=== PATIENT | female | born 1935 | race Caucasian/White ===

== ENCOUNTER 2021-06-08 15:47 | Inpatient (IN) | payer MEDICARE, OTHER ==
[2021-06-08] MEDS ORDERED: Bisacodyl 5 MG TAB PO PRN (16:18)
[2021-06-08] MEDS ORDERED: Ondansetron PF 4 MG/2 ML Vial IVP PRN (16:18)
[2021-06-08] MEDS ORDERED: Senokot S 8.6-50 MG TAB PO PRN (16:18)
[2021-06-08] MEDS ORDERED: Norepinephrine 8 MG/0.9% NS 250 ML IVPB SCH (16:30)
[2021-06-08 16:45] VITALS: BMI 26.9
[2021-06-08] MEDS: Mometasone/Formoterol 200/5 60 PUFF INH SCH (18:40)
[2021-06-09 04:05] LABS: #Basophils 0.1 10x3/uL (0.0-0.2); #Eosinphils 0.1 10x3/uL (0.0-0.5); #Monocytes 0.8 10x3/uL (0.0-1.1); #Neutrophils 5.3 10x3/uL (1.5-8.4); %Basophils 0.7 % (0.0-2.0); %Eosinophils 1.1 % (0.0-6.0); %Lymphocytes 16.2 % (18.0-47.0); %Monocytes 10.8 % (0.0-10.0); %Neutrophils 70.7 % (40.0-75.0); Hemoglobin 12.1 g/dL (12.0-15.5); Mean Corpuscular HGB CONC 33.4 g/dL (32.0-36.0); Mean Corpuscular Hemoglobin 31.3 pg (27.0-33.0); Mean Corpuscular Volume 93.8 fl (81.6-98.3); Mean Platelet Volume 10.8 fl (7.4-10.4); Platelet Count 144 10x3/uL (150-450); RBC Distribution Width 13.4 % (11.5-14.5); Red Blood Cell (RBC) Count 3.86 10x6/uL (3.90-5.03); White Blood Cell (WBC) Count 7.5 10x3/uL (3.5-10.5)
[2021-06-09 04:22] LABS: ALT (SGPT) 9 U/L (8-55); AST (SGOT) 14 U/L (5-34); Alkaline Phosphatase 46 U/L (40-110); Anion Gap 11 mmol/L (10-20); BUN (Urea Nitrogen) 11 mg/dL (9.8-20.1); Bilirubin, Total 0.5 mg/dL (0.2-1.2); Calc. Creatinine Clearance 69 mL/min (70-130); Calcium 8.2 mg/dL (7.8-10.44); Carbon Dioxide 19 mmol/L (23-31); Chloride 116 mmol/L (98-107); Globulin 1.8 g/dL (2.4-3.5); Glucose 110 mg/dL (83-110); Phosphorus 2.7 mg/dL (2.3-4.7); Protein, Total 4.8 g/dL (5.8-8.1); Sodium 142 mmol/L (136-145)
[2021-06-09] MEDS: Mometasone/Formoterol 200/5 60 PUFF INH SCH ×2 (07:48→19:45)
[2021-06-09] MEDS: Aspirin Chewable 81 MG TAB PO SCH (08:45)
[2021-06-09] MEDS: Enoxaparin Sodium 40 MG/0.4 ML SYRINGE SC SCH (08:46)
[2021-06-09] MEDS: cefTRIAXone\\ROCEPHIN 2 GM in Sodium Chloride 0.9% 100 ML IVPB SCH (10:05)
[2021-06-09] MEDS ORDERED: Sodium Chloride 0.9% 500 ML IV SCH (10:45)
[2021-06-09 11:37] LABS: Hemoglobin A1c 5.5 % (4.0-6.0)
[2021-06-09] MEDS: Acetaminophen 325 MG TAB PO PRN (20:26)
[2021-06-10 04:29] LABS: #Basophils 0.1 10x3/uL (0.0-0.2); #Eosinphils 0.2 10x3/uL (0.0-0.5); #Monocytes 0.7 10x3/uL (0.0-1.1); #Neutrophils 3.1 10x3/uL (1.5-8.4); %Basophils 1.1 % (0.0-2.0); %Eosinophils 3.2 % (0.0-6.0); %Monocytes 12.7 % (0.0-10.0); %Neutrophils 59.6 % (40.0-75.0); Mean Corpuscular HGB CONC 32.1 g/dL (32.0-36.0); Mean Corpuscular Hemoglobin 30.5 pg (27.0-33.0); Mean Platelet Volume 11.1 fl (7.4-10.4); Platelet Count 147 10x3/uL (150-450); RBC Distribution Width 13.3 % (11.5-14.5); Red Blood Cell (RBC) Count 3.61 10x6/uL (3.90-5.03); White Blood Cell (WBC) Count 5.3 10x3/uL (3.5-10.5)
[2021-06-10 04:37] LABS: ALT (SGPT) 8 U/L (8-55); AST (SGOT) 13 U/L (5-34); Albumin 2.9 g/dL (3.4-4.8); Alkaline Phosphatase 39 U/L (40-110); Anion Gap 11 mmol/L (10-20); BUN (Urea Nitrogen) 8 mg/dL (9.8-20.1); Bilirubin, Total 0.4 mg/dL (0.2-1.2); Calc. Creatinine Clearance 69 mL/min (70-130); Calcium 8.3 mg/dL (7.8-10.44); Carbon Dioxide 21 mmol/L (23-31); Chloride 115 mmol/L (98-107); Globulin 1.7 g/dL (2.4-3.5); Glucose 94 mg/dL (83-110); Magnesium 1.9 mg/dL (1.6-2.6); Potassium 3.7 mmol/L (3.5-5.1); Protein, Total 4.6 g/dL (5.8-8.1); Sodium 143 mmol/L (136-145)
[2021-06-10] MEDS: Mometasone/Formoterol 200/5 60 PUFF INH SCH ×2 (07:21→20:06)
[2021-06-10] MEDS: Enoxaparin Sodium 40 MG/0.4 ML SYRINGE SC SCH (08:41)
[2021-06-10] MEDS: Aspirin Chewable 81 MG TAB PO SCH (08:41)
[2021-06-10] MEDS: cefTRIAXone\\ROCEPHIN 2 GM in Sodium Chloride 0.9% 100 ML IVPB SCH (09:56)
[2021-06-10] MEDS: Acetaminophen 325 MG TAB PO PRN (21:47)
[2021-06-11 05:08] LABS: #Basophils 0.1 10x3/uL (0.0-0.2); #Eosinphils 0.2 10x3/uL (0.0-0.5); #Monocytes 0.6 10x3/uL (0.0-1.1); #Neutrophils 2.2 10x3/uL (1.5-8.4); %Basophils 1.2 % (0.0-2.0); %Eosinophils 3.6 % (0.0-6.0); %Lymphocytes 28.8 % (18.0-47.0); %Monocytes 14.8 % (0.0-10.0); %Neutrophils 51.1 % (40.0-75.0); Hemoglobin 11.1 g/dL (12.0-15.5); Mean Corpuscular HGB CONC 33.6 g/dL (32.0-36.0); Mean Corpuscular Hemoglobin 31.1 pg (27.0-33.0); Mean Corpuscular Volume 92.4 fl (81.6-98.3); Mean Platelet Volume 10.9 fl (7.4-10.4); Platelet Count 163 10x3/uL (150-450); RBC Distribution Width 13.2 % (11.5-14.5); Red Blood Cell (RBC) Count 3.57 10x6/uL (3.90-5.03); White Blood Cell (WBC) Count 4.2 10x3/uL (3.5-10.5)
[2021-06-11 05:13] LABS: ALT (SGPT) 8 U/L (8-55); AST (SGOT) 14 U/L (5-34); Albumin 2.8 g/dL (3.4-4.8); Alkaline Phosphatase 40 U/L (40-110); Anion Gap 10 mmol/L (10-20); BUN (Urea Nitrogen) 9 mg/dL (9.8-20.1); Bilirubin, Total 0.4 mg/dL (0.2-1.2); Calc. Creatinine Clearance 61 mL/min (70-130); Calcium 8.4 mg/dL (7.8-10.44); Carbon Dioxide 23 mmol/L (23-31); Chloride 112 mmol/L (98-107); Globulin 1.7 g/dL (2.4-3.5); Glucose 94 mg/dL (83-110); Magnesium 1.8 mg/dL (1.6-2.6); Phosphorus 3.7 mg/dL (2.3-4.7); Potassium 3.3 mmol/L (3.5-5.1); Protein, Total 4.5 g/dL (5.8-8.1); Sodium 142 mmol/L (136-145)
[2021-06-11] MEDS: Mometasone/Formoterol 200/5 60 PUFF INH SCH (06:52)
[2021-06-11] MEDS: Enoxaparin Sodium 40 MG/0.4 ML SYRINGE SC SCH (07:54)
[2021-06-11] MEDS: cefTRIAXone\\ROCEPHIN 2 GM in Sodium Chloride 0.9% 100 ML IVPB SCH (07:54)
[2021-06-11] MEDS: Aspirin Chewable 81 MG TAB PO SCH (07:54)
[2021-06-11] MEDS ORDERED: Potassium Chloride 20 MEQ TAB PO SCH (08:00)
[2021-06-11 12:18] VITALS: BP 127/77; TEMP 97
== END 2021-06-11 15:02 | disposition home or self-care (01) | DRG 871 ==
LOC: CSHIMCU 15:47 → CSHTELE 06-10 15:34
PROVIDERS: ADMIT Family Medicine; ATTEND Family Medicine
PROC: 3E033XZ Introduction of Vasopressor into Peripheral Vein, Percutaneous Approach (ICD-10-PCS; principal; 2021-06-08)
DX: A41.9 Sepsis, unspecified organism (principal); R65.21 Severe sepsis with septic shock; N10 Acute pyelonephritis; I10 Essential (primary) hypertension; K21.9 Gastro-esophageal reflux disease without esophagitis; Z20.822 Contact with and (suspected) exposure to COVID-19; Z87.891 Personal history of nicotine dependence; F41.9 Anxiety disorder, unspecified; J44.9 Chronic obstructive pulmonary disease, unspecified; R60.0 Localized edema; T50.995A Adverse effect of other drugs, medicaments and biological substances, initial encounter; Y92.230 Patient room in hospital as the place of occurrence of the external cause
CPT/HCPCS: 36415; 71045; 76770; 80053; 83036; 83735; 83880; 84100; 85025; 86140; 87081; 93005; 93010; 94664; 94760; J0696; J1650; J3490; J7030

== ENCOUNTER 2022-11-04 17:04 | Inpatient (IN) | payer MEDICARE ==
[2022-11-04] MEDS ORDERED: Calcium Carbonate 500 MG ChewTAB PO PRN (18:30)
[2022-11-04] MEDS ORDERED: Senokot S 8.6-50 MG TAB PO PRN (18:30)
[2022-11-04] MEDS ORDERED: Acetaminophen 325 MG TAB PO PRN (18:30)
[2022-11-04] MEDS ORDERED: Ondansetron PF 4 MG/2 ML Vial IVP PRN (18:30)
[2022-11-04] MEDS ORDERED: cefTRIAXone\\ROCEPHIN 1 GM in Sodium Chloride 0.9% 100 ML IVPB SCH (18:45)
[2022-11-04] MEDS: Sodium Chloride 0.9% 1,000 ML IV SCH (18:52)
[2022-11-04 23:24] VITALS: BMI 23.3
[2022-11-04] MEDS: Ipratropium/Albuterol 3 ML NEB NEB PRN (23:40)
[2022-11-05] MEDS ORDERED: Aspirin Chewable 81 MG TAB PO SCH (00:30)
[2022-11-05 04:23] LABS: #Basophils 0.1 10x3/uL (0.0-0.2); #Eosinphils 0.1 10x3/uL (0.0-0.5); #Monocytes 0.6 10x3/uL (0.0-1.1); #Neutrophils 6.3 10x3/uL (1.5-8.4); %Basophils 0.6 % (0.0-2.0); %Eosinophils 0.6 % (0.0-6.0); %Lymphocytes 14.6 % (18.0-47.0); %Neutrophils 76.8 % (40.0-75.0); Hemoglobin 12.5 g/dL (12.0-15.5); Mean Corpuscular HGB CONC 31.9 g/dL (32.0-36.0); Mean Corpuscular Hemoglobin 29.3 pg (27.0-33.0); Mean Platelet Volume 10.6 fl (7.4-10.4); Platelet Count 186 10x3/uL (150-450); RBC Distribution Width 13.2 % (11.5-14.5); Red Blood Cell (RBC) Count 4.26 10x6/uL (3.90-5.03); White Blood Cell (WBC) Count 8.2 10x3/uL (3.5-10.5)
[2022-11-05 04:37] LABS: Anion Gap 11 mmol/L (10-20); BUN (Urea Nitrogen) 10 mg/dL (9.8-20.1); Calc. Creatinine Clearance 61 mL/min (70-130); Carbon Dioxide 24 mmol/L (23-31); Chloride 109 mmol/L (98-107); Estimated GFR 86; Glucose 100 mg/dL (83-110); Potassium 3.8 mmol/L (3.5-5.1); Sodium 140 mmol/L (136-145)
[2022-11-05 07:11] LABS: SARS-CoV-2 NAA Rapid Test DETECTED (NotDetected)
[2022-11-05] MEDS ORDERED: FLU VACC QS2022-23(65YR UP)/PF 240 MCG/0.7 ML SYRINGE IM ONE (09:00)
[2022-11-05] MEDS: Aspirin 81 mg Enteric Coated Tablet PO SCH (09:37)
[2022-11-05] MEDS: Sodium Chloride 0.9% 1,000 ML IV SCH ×2 (14:14→16:58)
[2022-11-05] MEDS: cefTRIAXone\\ROCEPHIN 1 GM in Sodium Chloride 0.9% 100 ML IVPB SCH (16:58)
[2022-11-05] MEDS: Ipratropium/Albuterol 3 ML NEB NEB PRN (21:15)
[2022-11-05] MEDS: D5 0.9% NS w/ 20 mEq KCl 1,000 ML IV SCH (22:18)
[2022-11-06 04:05] LABS: #Eosinphils 0.1 10x3/uL (0.0-0.5); #Monocytes 0.5 10x3/uL (0.0-1.1); #Neutrophils 4.3 10x3/uL (1.5-8.4); %Basophils 0.5 % (0.0-2.0); %Eosinophils 1.8 % (0.0-6.0); %Lymphocytes 17.9 % (18.0-47.0); %Monocytes 8.3 % (0.0-10.0); %Neutrophils 71.2 % (40.0-75.0); Hemoglobin 12.8 g/dL (12.0-15.5); Mean Corpuscular HGB CONC 32.1 g/dL (32.0-36.0); Mean Corpuscular Hemoglobin 29.6 pg (27.0-33.0); Mean Corpuscular Volume 92.1 fl (81.6-98.3); Mean Platelet Volume 10.8 fl (7.4-10.4); Platelet Count 173 10x3/uL (150-450); RBC Distribution Width 13.1 % (11.5-14.5); Red Blood Cell (RBC) Count 4.33 10x6/uL (3.90-5.03); White Blood Cell (WBC) Count 6.1 10x3/uL (3.5-10.5)
[2022-11-06 04:19] LABS: Anion Gap 11 mmol/L (10-20); BUN (Urea Nitrogen) 10 mg/dL (9.8-20.1); Calc. Creatinine Clearance 65 mL/min (70-130); Calcium 8.8 mg/dL (7.8-10.44); Carbon Dioxide 24 mmol/L (23-31); Cardiac Risk 4.7 (Less than 4.5); Chloride 109 mmol/L (98-107); Cholesterol 210 mg/dl (< 200 Desired); Estimated GFR 87; Glucose 108 mg/dL (83-110); HDL Cholesterol 45 mg/dL (>60 Neg Risk); LDL Cholesterol, Calculated 138 mg/dL; Potassium 3.4 mmol/L (3.5-5.1); Sodium 141 mmol/L (136-145); Triglycerides 136 mg/dL (Less than 150)
[2022-11-06] MEDS ORDERED: Acetaminophen 650 MG Suppository PR SCH (05:30)
[2022-11-06] MEDS: Ipratropium/Albuterol 3 ML NEB NEB PRN ×2 (07:35→19:55)
[2022-11-06] MEDS: Aspirin 81 mg Enteric Coated Tablet PO SCH (08:31)
[2022-11-06] MEDS: D5 0.9% NS w/ 20 mEq KCl 1,000 ML IV SCH (08:31)
[2022-11-06] MEDS ORDERED: Electrolyte Replacement Protocol 1 EACH FS SCH (09:15)
[2022-11-06] MEDS ORDERED: Potassium Chloride 40 MEQ in Premix Bag 1 BAG IVPB SCH (09:15)
[2022-11-06] MEDS: Potassium Chloride 20 MEQ in Premix Bag 1 BAG IVPB SCH ×2 (10:35→12:45)
[2022-11-06 12:08] LABS: Hemoglobin A1c 5.6 % (4.0-6.0)
[2022-11-06] MEDS: cefTRIAXone\\ROCEPHIN 1 GM in Sodium Chloride 0.9% 100 ML IVPB SCH (16:23)
[2022-11-06] MEDS: Atorvastatin Calcium 40 MG TAB PO SCH (21:38)
[2022-11-07] MEDS: D5 0.9% NS w/ 20 mEq KCl 1,000 ML IV SCH (02:58)
[2022-11-07 05:29] LABS: #Eosinphils 0.2 10x3/uL (0.0-0.5); #Monocytes 0.6 10x3/uL (0.0-1.1); #Neutrophils 3.9 10x3/uL (1.5-8.4); %Basophils 0.7 % (0.0-2.0); %Eosinophils 2.8 % (0.0-6.0); %Lymphocytes 19.1 % (18.0-47.0); %Monocytes 9.5 % (0.0-10.0); %Neutrophils 67.7 % (40.0-75.0); Hemoglobin 13.1 g/dL (12.0-15.5); Mean Corpuscular HGB CONC 32.3 g/dL (32.0-36.0); Mean Corpuscular Hemoglobin 29.4 pg (27.0-33.0); Mean Corpuscular Volume 91.2 fl (81.6-98.3); Mean Platelet Volume 10.8 fl (7.4-10.4); Platelet Count 187 10x3/uL (150-450); RBC Distribution Width 13.2 % (11.5-14.5); Red Blood Cell (RBC) Count 4.45 10x6/uL (3.90-5.03); White Blood Cell (WBC) Count 5.8 10x3/uL (3.5-10.5)
[2022-11-07 05:43] LABS: Phosphorus 2.5 mg/dL (2.3-4.7)
[2022-11-07 05:50] LABS: Anion Gap 11 mmol/L (10-20); BUN (Urea Nitrogen) 6 mg/dL (9.8-20.1); Calc. Creatinine Clearance 68 mL/min (70-130); Carbon Dioxide 25 mmol/L (23-31); Chloride 109 mmol/L (98-107); Estimated GFR 88; Glucose 117 mg/dL (83-110); Magnesium 1.9 mg/dL (1.6-2.6); Potassium 3.5 mmol/L (3.5-5.1); Sodium 141 mmol/L (136-145)
[2022-11-07] MEDS ORDERED: Potassium Chloride 20 MEQ TAB PO SCH (08:00)
[2022-11-07] MEDS ORDERED: Magnesium 2 GM/50 ML(in water) 2 GM in Premix Bag 1 BAG IVPB SCH (08:00)
[2022-11-07] MEDS: Ipratropium/Albuterol 3 ML NEB NEB PRN (08:10)
[2022-11-07] MEDS: Aspirin 81 mg Enteric Coated Tablet PO SCH (09:00)
[2022-11-07] MEDS ORDERED: Furosemide 40 MG/4 ML VIAL SLOW IVP SCH (10:30)
[2022-11-07] MEDS: D5W-AA 4.25% with LYTES 1,000 ML IV SCH (12:28)
[2022-11-07] MEDS: cefTRIAXone\\ROCEPHIN 1 GM in Sodium Chloride 0.9% 100 ML IVPB SCH (16:33)
[2022-11-07] MEDS: Atorvastatin Calcium 40 MG TAB PO SCH (20:17)
[2022-11-08] MEDS: D5W-AA 4.25% with LYTES 1,000 ML IV SCH (07:39)
[2022-11-08] MEDS: Aspirin 81 mg Enteric Coated Tablet PO SCH (09:06)
[2022-11-08] MEDS: Ipratropium/Albuterol 3 ML NEB NEB PRN ×2 (11:43→19:25)
[2022-11-08] MEDS: cefTRIAXone\\ROCEPHIN 1 GM in Sodium Chloride 0.9% 100 ML IVPB SCH (16:20)
[2022-11-08] MEDS: Mometasone/Formoterol 200/5 60 PUFF INH SCH (19:20)
[2022-11-08] MEDS: Atorvastatin Calcium 40 MG TAB PO SCH (20:42)
[2022-11-09] MEDS: D5W-AA 4.25% with LYTES 1,000 ML IV SCH ×2 (03:23→23:05)
[2022-11-09 04:39] LABS: #Basophils 0.1 10x3/uL (0.0-0.2); #Eosinphils 0.2 10x3/uL (0.0-0.5); #Monocytes 0.7 10x3/uL (0.0-1.1); #Neutrophils 4.2 10x3/uL (1.5-8.4); %Basophils 0.9 % (0.0-2.0); %Eosinophils 3.2 % (0.0-6.0); %Lymphocytes 21.9 % (18.0-47.0); %Monocytes 10.4 % (0.0-10.0); Hemoglobin 14.8 g/dL (12.0-15.5); Mean Corpuscular HGB CONC 33.1 g/dL (32.0-36.0); Mean Corpuscular Volume 90.5 fl (81.6-98.3); Mean Platelet Volume 10.8 fl (7.4-10.4); Platelet Count 190 10x3/uL (150-450); RBC Distribution Width 13.4 % (11.5-14.5); Red Blood Cell (RBC) Count 4.94 10x6/uL (3.90-5.03); White Blood Cell (WBC) Count 6.6 10x3/uL (3.5-10.5)
[2022-11-09 04:49] LABS: ALT (SGPT) 10 U/L (8-55); AST (SGOT) 14 U/L (5-34); Albumin 3.6 g/dL (3.4-4.8); Alkaline Phosphatase 46 U/L (40-110); Anion Gap 16 mmol/L (10-20); BUN (Urea Nitrogen) 24 mg/dL (9.8-20.1); Bilirubin, Total 0.8 mg/dL (0.2-1.2); Calc. Creatinine Clearance 60 mL/min (70-130); Calcium 9.8 mg/dL (7.8-10.44); Carbon Dioxide 22 mmol/L (23-31); Chloride 105 mmol/L (98-107); Estimated GFR 86; Globulin 2.6 g/dL (2.4-3.5); Glucose 110 mg/dL (83-110); Magnesium 2.2 mg/dL (1.6-2.6); Potassium 4.1 mmol/L (3.5-5.1); Protein, Total 6.2 g/dL (5.8-8.1); Sodium 139 mmol/L (136-145)
[2022-11-09] MEDS: Mometasone/Formoterol 200/5 60 PUFF INH SCH ×2 (07:30→20:50)
[2022-11-09] MEDS: Amlodipine 5 MG TAB PO SCH (08:31)
[2022-11-09] MEDS: Aspirin 81 mg Enteric Coated Tablet PO SCH (08:31)
[2022-11-09] MEDS: cefTRIAXone\\ROCEPHIN 1 GM in Sodium Chloride 0.9% 100 ML IVPB SCH (15:25)
[2022-11-09] MEDS ORDERED: ALPRAZolam 0.25 MG TAB PO SCH (22:15)
[2022-11-09] MEDS: Atorvastatin Calcium 40 MG TAB PO SCH (22:27)
[2022-11-10] MEDS ORDERED: traMADol HCl 50 MG TAB PO SCH (03:00)
[2022-11-10 05:35] LABS: #Basophils 0.1 10x3/uL (0.0-0.2); #Eosinphils 0.3 10x3/uL (0.0-0.5); #Monocytes 0.6 10x3/uL (0.0-1.1); %Basophils 0.8 % (0.0-2.0); %Eosinophils 3.9 % (0.0-6.0); %Lymphocytes 18.3 % (18.0-47.0); %Monocytes 8.7 % (0.0-10.0); %Neutrophils 67.8 % (40.0-75.0); Hemoglobin 14.6 g/dL (12.0-15.5); Mean Corpuscular HGB CONC 32.4 g/dL (32.0-36.0); Mean Corpuscular Hemoglobin 29.6 pg (27.0-33.0); Mean Corpuscular Volume 91.3 fl (81.6-98.3); Mean Platelet Volume 10.5 fl (7.4-10.4); Platelet Count 182 10x3/uL (150-450); RBC Distribution Width 13.3 % (11.5-14.5); Red Blood Cell (RBC) Count 4.93 10x6/uL (3.90-5.03); White Blood Cell (WBC) Count 7.4 10x3/uL (3.5-10.5)
[2022-11-10 05:47] LABS: Anion Gap 12 mmol/L (10-20); BUN (Urea Nitrogen) 24 mg/dL (9.8-20.1); Calc. Creatinine Clearance 65 mL/min (70-130); Calcium 9.5 mg/dL (7.8-10.44); Carbon Dioxide 23 mmol/L (23-31); Chloride 105 mmol/L (98-107); Estimated GFR 87; Glucose 119 mg/dL (83-110); Potassium 3.9 mmol/L (3.5-5.1); Sodium 136 mmol/L (136-145)
[2022-11-10] MEDS: Mometasone/Formoterol 200/5 60 PUFF INH SCH ×2 (07:17→21:22)
[2022-11-10] MEDS: Amlodipine 5 MG TAB PO SCH (08:09)
[2022-11-10] MEDS: Aspirin 81 mg Enteric Coated Tablet PO SCH (08:09)
[2022-11-10] MEDS: cefTRIAXone\\ROCEPHIN 1 GM in Sodium Chloride 0.9% 100 ML IVPB SCH (17:57)
[2022-11-10] MEDS ORDERED: traMADol HCl 50 MG TAB PO PRN (18:03)
[2022-11-10] MEDS: D5W-AA 4.25% with LYTES 1,000 ML IV SCH (20:44)
[2022-11-10] MEDS: Atorvastatin Calcium 40 MG TAB PO SCH (20:44)
[2022-11-10] MEDS ORDERED: HYDROcodone/Acetaminophen 5/325 mg Tablet PO SCH (20:45)
[2022-11-10] MEDS ORDERED: QUEtiapine 25 MG TAB PO SCH (21:00)
[2022-11-11 06:37] LABS: #Basophils 0.1 10x3/uL (0.0-0.2); #Eosinphils 0.2 10x3/uL (0.0-0.5); #Monocytes 0.6 10x3/uL (0.0-1.1); #Neutrophils 4.3 10x3/uL (1.5-8.4); %Basophils 0.9 % (0.0-2.0); %Eosinophils 3.3 % (0.0-6.0); %Lymphocytes 18.2 % (18.0-47.0); Mean Corpuscular HGB CONC 32.1 g/dL (32.0-36.0); Mean Corpuscular Hemoglobin 29.8 pg (27.0-33.0); Mean Corpuscular Volume 92.7 fl (81.6-98.3); Mean Platelet Volume 10.5 fl (7.4-10.4); Platelet Count 177 10x3/uL (150-450); RBC Distribution Width 13.4 % (11.5-14.5); Red Blood Cell (RBC) Count 5.04 10x6/uL (3.90-5.03); White Blood Cell (WBC) Count 6.4 10x3/uL (3.5-10.5)
[2022-11-11 07:08] LABS: Anion Gap 15 mmol/L (10-20); BUN (Urea Nitrogen) 29 mg/dL (9.8-20.1); Calc. Creatinine Clearance 65 mL/min (70-130); Calcium 9.9 mg/dL (7.8-10.44); Carbon Dioxide 24 mmol/L (23-31); Chloride 103 mmol/L (98-107); Estimated GFR 87; Glucose 105 mg/dL (83-110); Magnesium 2.2 mg/dL (1.6-2.6); Potassium 4.6 mmol/L (3.5-5.1); Sodium 137 mmol/L (136-145)
[2022-11-11] MEDS: Mometasone/Formoterol 200/5 60 PUFF INH SCH ×2 (07:40→19:56)
[2022-11-11] MEDS ORDERED: Aspirin Chewable 81 MG TAB PO SCH (09:00)
[2022-11-11] MEDS ORDERED: Acetaminophen 325 MG TAB PER TUBE PRN (09:45)
[2022-11-11] MEDS ORDERED: traMADol HCl 50 MG TAB PER TUBE PRN (09:45)
[2022-11-11] MEDS ORDERED: Calcium Carbonate 500 MG ChewTAB PER TUBE PRN (09:45)
[2022-11-11] MEDS ORDERED: Senokot S 8.6-50 MG TAB PER TUBE PRN (09:45)
[2022-11-11] MEDS ORDERED: HYDROcodone/Acetaminophen 5/325 mg Tablet PO PRN (11:46)
[2022-11-11] MEDS: Amlodipine 5 MG TAB PO SCH (12:00)
[2022-11-11] MEDS: Aspirin 81 mg Enteric Coated Tablet PO SCH (12:01)
[2022-11-11] MEDS: Aspirin Chewable 81 MG TAB PER TUBE SCH (12:44)
[2022-11-11] MEDS: Amlodipine 5 MG TAB PER TUBE SCH (12:44)
[2022-11-11] MEDS: Lansoprazole 3 MG/ML ORAL SUSPENSION PER TUBE SCH (12:44)
[2022-11-11] MEDS: HYDROcodone/Acetaminophen 5/325 mg Tablet PER TUBE PRN ×2 (13:05→20:57)
[2022-11-11] MEDS: D5W-AA 4.25% with LYTES 1,000 ML IV SCH (18:47)
[2022-11-11] MEDS: Atorvastatin Calcium 40 MG TAB PER TUBE SCH (20:57)
[2022-11-11] MEDS ORDERED: QUEtiapine 25 MG TAB PER TUBE SCH (21:00)
[2022-11-12 06:05] LABS: #Basophils 0.1 10x3/uL (0.0-0.2); #Eosinphils 0.2 10x3/uL (0.0-0.5); #Monocytes 0.6 10x3/uL (0.0-1.1); #Neutrophils 3.5 10x3/uL (1.5-8.4); %Basophils 1.1 % (0.0-2.0); %Eosinophils 3.8 % (0.0-6.0); %Lymphocytes 21.3 % (18.0-47.0); %Monocytes 10.7 % (0.0-10.0); %Neutrophils 62.6 % (40.0-75.0); Hemoglobin 14.6 g/dL (12.0-15.5); Mean Corpuscular HGB CONC 31.7 g/dL (32.0-36.0); Mean Corpuscular Hemoglobin 29.3 pg (27.0-33.0); Mean Corpuscular Volume 92.4 fl (81.6-98.3); Mean Platelet Volume 10.7 fl (7.4-10.4); Platelet Count 182 10x3/uL (150-450); RBC Distribution Width 13.2 % (11.5-14.5); Red Blood Cell (RBC) Count 4.98 10x6/uL (3.90-5.03); White Blood Cell (WBC) Count 5.6 10x3/uL (3.5-10.5)
[2022-11-12 06:10] LABS: Anion Gap 13 mmol/L (10-20); BUN (Urea Nitrogen) 21 mg/dL (9.8-20.1); Calc. Creatinine Clearance 61 mL/min (70-130); Calcium 9.6 mg/dL (7.8-10.44); Carbon Dioxide 25 mmol/L (23-31); Chloride 103 mmol/L (98-107); Estimated GFR 86; Glucose 100 mg/dL (83-110); Potassium 4.2 mmol/L (3.5-5.1); Sodium 137 mmol/L (136-145)
[2022-11-12] MEDS: Mometasone/Formoterol 200/5 60 PUFF INH SCH ×2 (08:12→20:50)
[2022-11-12] MEDS: Ipratropium/Albuterol 3 ML NEB NEB PRN (08:13)
[2022-11-12] MEDS: Amlodipine 5 MG TAB PER TUBE SCH (09:38)
[2022-11-12] MEDS: Aspirin Chewable 81 MG TAB PER TUBE SCH (09:39)
[2022-11-12] MEDS: HYDROcodone/Acetaminophen 5/325 mg Tablet PER TUBE PRN (09:40)
[2022-11-12] MEDS: Lansoprazole 3 MG/ML ORAL SUSPENSION PER TUBE SCH (15:00)
[2022-11-12] MEDS: D5W-AA 4.25% with LYTES 1,000 ML IV SCH (15:00)
[2022-11-12] MEDS ORDERED: HYDROcodone/Acetaminophen 5/325 mg Tablet PER TUBE PRN (15:18)
[2022-11-12] MEDS: Atorvastatin Calcium 40 MG TAB PER TUBE SCH (21:17)
[2022-11-13] MEDS ORDERED: diphenhydrAMINE 25 MG CAP PO SCH (00:15)
[2022-11-13 05:58] LABS: #Basophils 0.1 10x3/uL (0.0-0.2); #Eosinphils 0.2 10x3/uL (0.0-0.5); #Monocytes 0.6 10x3/uL (0.0-1.1); #Neutrophils 4.7 10x3/uL (1.5-8.4); %Basophils 1.1 % (0.0-2.0); %Eosinophils 2.6 % (0.0-6.0); %Lymphocytes 16.7 % (18.0-47.0); %Monocytes 8.6 % (0.0-10.0); %Neutrophils 70.5 % (40.0-75.0); Hemoglobin 14.4 g/dL (12.0-15.5); Mean Corpuscular HGB CONC 32.4 g/dL (32.0-36.0); Mean Corpuscular Hemoglobin 29.6 pg (27.0-33.0); Mean Corpuscular Volume 91.4 fl (81.6-98.3); Mean Platelet Volume 10.6 fl (7.4-10.4); Platelet Count 184 10x3/uL (150-450); RBC Distribution Width 13.1 % (11.5-14.5); Red Blood Cell (RBC) Count 4.87 10x6/uL (3.90-5.03); White Blood Cell (WBC) Count 6.6 10x3/uL (3.5-10.5)
[2022-11-13 06:10] LABS: Anion Gap 13 mmol/L (10-20); BUN (Urea Nitrogen) 19 mg/dL (9.8-20.1); Calc. Creatinine Clearance 64 mL/min (70-130); Calcium 9.8 mg/dL (7.8-10.44); Carbon Dioxide 26 mmol/L (23-31); Chloride 103 mmol/L (98-107); Estimated GFR 87; Glucose 120 mg/dL (83-110); Potassium 4.3 mmol/L (3.5-5.1); Sodium 138 mmol/L (136-145)
[2022-11-13] MEDS: Aspirin Chewable 81 MG TAB PER TUBE SCH (09:31)
[2022-11-13] MEDS: Amlodipine 5 MG TAB PER TUBE SCH (09:31)
[2022-11-13] MEDS: Mometasone/Formoterol 200/5 60 PUFF INH SCH ×2 (09:35→20:45)
[2022-11-13] MEDS ORDERED: Bisacodyl 10 MG SUPP PR SCH (10:15)
[2022-11-13] MEDS: Lansoprazole 3 MG/ML ORAL SUSPENSION PER TUBE SCH (10:16)
[2022-11-13] MEDS: D5W-AA 4.25% with LYTES 1,000 ML IV SCH (10:16)
[2022-11-13] MEDS: HYDROcodone/Acetaminophen 5/325 mg Tablet PO SCH ×2 (14:34→23:30)
[2022-11-13] MEDS: Bisacodyl 10 MG SUPP PR SCH ×2 (14:34→23:00)
[2022-11-13] MEDS: Sodium Chloride 0.9% 1,000 ML IV SCH (14:35)
[2022-11-13] MEDS ORDERED: HYDROcodone/Acetaminophen 5/325 mg Tablet PER TUBE SCH (15:00)
[2022-11-13] MEDS: Atorvastatin Calcium 40 MG TAB PER TUBE SCH (23:44)
[2022-11-14] MEDS: Sodium Chloride 0.9% 1,000 ML IV SCH ×2 (04:16→16:13)
[2022-11-14 06:03] LABS: #Basophils 0.1 10x3/uL (0.0-0.2); #Eosinphils 0.2 10x3/uL (0.0-0.5); #Monocytes 0.7 10x3/uL (0.0-1.1); #Neutrophils 5.1 10x3/uL (1.5-8.4); %Basophils 0.7 % (0.0-2.0); %Eosinophils 2.3 % (0.0-6.0); %Lymphocytes 14.5 % (18.0-47.0); %Monocytes 10.2 % (0.0-10.0); %Neutrophils 71.7 % (40.0-75.0); Mean Corpuscular HGB CONC 32.1 g/dL (32.0-36.0); Mean Corpuscular Hemoglobin 29.8 pg (27.0-33.0); Mean Corpuscular Volume 92.8 fl (81.6-98.3); Platelet Count 189 10x3/uL (150-450); RBC Distribution Width 13.1 % (11.5-14.5); White Blood Cell (WBC) Count 7.1 10x3/uL (3.5-10.5)
[2022-11-14 06:30] LABS: Anion Gap 13 mmol/L (10-20); BUN (Urea Nitrogen) 17 mg/dL (9.8-20.1); Calc. Creatinine Clearance 70 mL/min (70-130); Calcium 9.5 mg/dL (7.8-10.44); Carbon Dioxide 23 mmol/L (23-31); Chloride 105 mmol/L (98-107); Estimated GFR 89; Glucose 99 mg/dL (83-110); Potassium 4.2 mmol/L (3.5-5.1); Sodium 137 mmol/L (136-145)
[2022-11-14] MEDS: Mometasone/Formoterol 200/5 60 PUFF INH SCH ×2 (08:36→20:15)
[2022-11-14] MEDS: Amlodipine 5 MG TAB PER TUBE SCH (09:33)
[2022-11-14] MEDS: Lansoprazole 3 MG/ML ORAL SUSPENSION PER TUBE SCH (09:33)
[2022-11-14] MEDS: Aspirin Chewable 81 MG TAB PER TUBE SCH (09:34)
[2022-11-14] MEDS: HYDROcodone/Acetaminophen 5/325 mg Tablet PO SCH (09:40)
[2022-11-14] MEDS ORDERED: HYDROcodone/Acetaminophen 5/325 mg Tablet PO PRN (12:28)
[2022-11-14] MEDS: D5 1/2 NS w/10 mEq KCl 1,000 ML/1,000 ML BAG IV SCH (14:41)
[2022-11-14] MEDS ORDERED: Gabapentin 100 MG CAP PO PRN (18:14)
[2022-11-14] MEDS: Mineral Oil ENEMA PR SCH ×2 (19:52→21:33)
[2022-11-14] MEDS ORDERED: Gabapentin 100 MG CAP PO SCH (21:00)
[2022-11-14] MEDS: Polyethylene Glycol 3350 17 GM Packet PO SCH (21:33)
[2022-11-14] MEDS: Atorvastatin Calcium 40 MG TAB PER TUBE SCH (21:34)
[2022-11-14] MEDS ORDERED: Mineral Oil ENEMA PR SCH (21:45)
[2022-11-15] MEDS: D5 1/2 NS w/10 mEq KCl 1,000 ML/1,000 ML BAG IV SCH ×2 (03:28→17:14)
[2022-11-15 06:27] LABS: #Basophils 0.1 10x3/uL (0.0-0.2); #Eosinphils 0.2 10x3/uL (0.0-0.5); #Monocytes 0.6 10x3/uL (0.0-1.1); #Neutrophils 3.4 10x3/uL (1.5-8.4); %Basophils 1.2 % (0.0-2.0); %Eosinophils 2.7 % (0.0-6.0); %Lymphocytes 24.7 % (18.0-47.0); %Monocytes 10.9 % (0.0-10.0); Mean Corpuscular HGB CONC 32.4 g/dL (32.0-36.0); Mean Corpuscular Hemoglobin 29.7 pg (27.0-33.0); Mean Corpuscular Volume 91.8 fl (81.6-98.3); Mean Platelet Volume 11.1 fl (7.4-10.4); Platelet Count 200 10x3/uL (150-450); Red Blood Cell (RBC) Count 4.37 10x6/uL (3.90-5.03); White Blood Cell (WBC) Count 5.6 10x3/uL (3.5-10.5)
[2022-11-15 06:43] LABS: Anion Gap 12 mmol/L (10-20); BUN (Urea Nitrogen) 11 mg/dL (9.8-20.1); Calc. Creatinine Clearance 69 mL/min (70-130); Calcium 9.4 mg/dL (7.8-10.44); Carbon Dioxide 26 mmol/L (23-31); Chloride 105 mmol/L (98-107); Estimated GFR 89; Glucose 105 mg/dL (83-110); Magnesium 2.2 mg/dL (1.6-2.6); Phosphorus 2.5 mg/dL (2.3-4.7); Potassium 3.9 mmol/L (3.5-5.1); Sodium 139 mmol/L (136-145)
[2022-11-15] MEDS: Mometasone/Formoterol 200/5 60 PUFF INH SCH (08:30)
[2022-11-15] MEDS: Amlodipine 5 MG TAB PER TUBE SCH (09:55)
[2022-11-15] MEDS: Aspirin Chewable 81 MG TAB PER TUBE SCH (09:56)
[2022-11-15] MEDS: Lansoprazole 3 MG/ML ORAL SUSPENSION PER TUBE SCH (09:56)
[2022-11-15] MEDS: Polyethylene Glycol 3350 17 GM Packet PO SCH (09:56)
[2022-11-15 16:41] VITALS: BP 133/66; TEMP 97.7
== END 2022-11-15 20:15 | disposition home or self-care (01) | DRG 64 ==
LOC: CSHTELE 18:09 → OBSVTOIN 18:30
PROVIDERS: ADMIT Family Medicine; ATTEND Internal Medicine
PROC: 8E0ZXY6 Isolation (ICD-10-PCS; 2022-11-04)
PROC: 3E0336Z Introduction of Nutritional Substance into Peripheral Vein, Percutaneous Approach (ICD-10-PCS; principal; 2022-11-08)
DX: I63.9 Cerebral infarction, unspecified (principal); G93.41 Metabolic encephalopathy; U07.1 COVID-19; N39.0 Urinary tract infection, site not specified; G81.94 Hemiplegia, unspecified affecting left nondominant side; I50.32 Chronic diastolic (congestive) heart failure; K21.9 Gastro-esophageal reflux disease without esophagitis; F41.9 Anxiety disorder, unspecified; M19.90 Unspecified osteoarthritis, unspecified site; J44.9 Chronic obstructive pulmonary disease, unspecified; I11.0 Hypertensive heart disease with heart failure; R11.2 Nausea with vomiting, unspecified; K59.00 Constipation, unspecified; Z79.899 Other long term (current) drug therapy; Z98.890 Other specified postprocedural states; Z90.49 Acquired absence of other specified parts of digestive tract; Z87.891 Personal history of nicotine dependence
CPT/HCPCS: 36415; 36416; 70450; 70551; 71045; 74018; 74019; 74230; 80048; 80053; 80061; 83036; 83735; 84100; 85025; 93005; 93010; 93306; 93880; 94640; 94664; 94667; 94760; 94762; 94799; J0696; J1650; J1940; J2405; J3475; J3480; J3490; J7050; J7620; U0002